=== PATIENT | female | born 1950 | race Caucasian/White ===

== ENCOUNTER → 2016-06-20 | Outpatient (CLI) | payer MEDICARE | END | disposition home or self-care (01) | LOC: GMAM 14:39 | PROVIDERS: ATTEND Family Medicine | DX: K30 Functional dyspepsia (principal) ==

== ENCOUNTER → 2016-07-13 | Outpatient (CLI) | payer MEDICARE | END | disposition home or self-care (01) | LOC: GMAM 15:03 | PROVIDERS: ATTEND Family Medicine | DX: K30 Functional dyspepsia (principal) ==

== ENCOUNTER → 2016-08-17 | Outpatient (CLI) | payer MEDICARE ==
--- NOTE | 2016-08-17 16:25 | MAM ---
And a zero Electronically signed by: Katelin Graves MD 08/17/2016 4:24 PM CDT
== END | disposition home or self-care (01) ==
LOC: MAMMO 08:35
PROVIDERS: ATTEND Family Medicine
DX: Z12.31 Encounter for screening mammogram for malignant neoplasm of breast (principal)

== ENCOUNTER 2016-08-24 18:15 | Emergency (ER) | payer MEDICARE ==
[2016-08-24] MEDS ORDERED: MORPHINE SULFATE INJ 10 MG/ML VIAL IM ONE (18:37)
--- NOTE | 2016-08-24 19:44 | RAD ---
EXAM DESCRIPTION: Ribs,Right 3 Views CLINICAL HISTORY: 66 years, Female, fall/pain COMPARISON: None. FINDINGS: Three views of the right-sided ribs were performed. No pneumothorax is detected. No localized pleural thickening is seen. No rib fracture is identified. Low lung volumes but the lungs are clear as imaged. The costophrenic sulci are sharp. Degenerative changes are noted in the spine. IMPRESSION: No rib fracture is identified. Electronically signed by: Malathi Mauro MD 08/24/2016 7:43 PM CDT
--- NOTE | 2016-08-24 19:50 | RAD ---
EXAM DESCRIPTION: Thoracic Spine,AP Lateral CLINICAL HISTORY: 66 years Female fall/pain COMPARISON: None. TECHNIQUE: Three views of the thoracic spine. FINDINGS: The upper thoracic spine is suboptimally visualized on the lateral views. Minimal retrolisthesis at C5-6 likely degenerative. Thoracic vertebral body alignment appears maintained. Vertebral body heights appear maintained. No acute fractures. Mild degenerative changes. IMPRESSION: No acute fracture is identified. Electronically signed by: Catarino Bennett MD 08/24/2016 7:49 PM CDT
--- NOTE | 2016-08-24 19:52 | RAD ---
EXAM DESCRIPTION: Knee,Left 2 or More Views CLINICAL HISTORY: 66 years Female fall/pain COMPARISON: None. TECHNIQUE: Three views of the left knee. FINDINGS: There is hemarthrosis in the knee joint. There are comminuted and slightly displaced fractures of the patella. There is soft tissue swelling anterior to the knee. The distal femur, upper tibia and fibula appear grossly intact. IMPRESSION: Comminuted and displaced patellar fractures. Electronically signed by: Catarino Bennett MD 08/24/2016 7:51 PM CDT
--- NOTE | 2016-08-24 19:54 | RAD ---
EXAM DESCRIPTION: Wrist,Right 3 Views CLINICAL HISTORY: 66 years ,Female fall/pain COMPARISON: None. TECHNIQUE: Three views of the right wrist. FINDINGS: There is a nondisplaced fracture involving the metaphyseal region of the distal radius. Intra-articular extension of the fracture line is not excluded. The distal ulna appears intact. The carpal bones appear grossly intact. IMPRESSION: Fractures involving the metaphyseal region of the distal radius. Electronically signed by: Catarino Bennett MD 08/24/2016 7:53 PM CDT
[2016-08-24] MEDS ORDERED: SODIUM CHLORIDE 0.9% 1000ML 1,000 ML IVS ONE (20:14)
[2016-08-24] MEDS ORDERED: SODIUM CHLORIDE 0.9% 1000ML 1,000 ML ONE (20:15)
[2016-08-24] MEDS ORDERED: MORPHINE SULFATE INJ 10 MG/ML VIAL IV ONE (20:15)
--- NOTE | 2016-08-24 20:19 | ED.PDOC ---
History of Present Illness - General Chief Complaint: Lower Extremity Injury Stated Complaint: LEFT KNEE INJURY Time Seen by Provider: 08/24/16 18:35 Source: patient, RN notes reviewed, Vital Signs reviewed Exam Limitations: no limitations - History of Present Illness Initial Comments: Patient is a 66 y/o female who tripped over a rock and fell while walking at about 1530 this afternoon. She went home for awhile, and was able to ambulate a little, however after she sat down awhile and needed to get up to go the the bathroom, she was unable to get up. She was brought in by EMS. Patient states that her pain is about a 6/10 if not moving. She has pain in her right wrist, left knee, and left back/rib area. The knee is quite swollen and she is now unable to bear weight. Timing/Duration: 4-6 hours, getting worse Severity: moderate, severe Improving Factors: immobilization Worsening Factors: movement Associated Symptoms: denies symptoms Allergies/Adverse Reactions: Allergies NO KNOWN ALLERGY Allergy (Verified 08/24/16 18:57) Home Medications: Ambulatory Orders Acetaminophen W/ Codeine [Tylenol w/Codeine 300-30 mg] 1 tab PO Q4H PRN #20 tab 08/24/16 Review of Systems - Review of Systems Constitutional: States: no symptoms reported. Denies: chills, fever EENTM: States: no symptoms reported Respiratory: States: no symptoms reported Cardiology: States: no symptoms reported Gastrointestinal/Abdominal: States: no symptoms reported Genitourinary: States: no symptoms reported Musculoskeletal: States: back pain, joint pain, joint swelling, muscle pain, muscle stiffness Skin: States: change in color Neurological: States: no symptoms reported. Denies: numbness, tingling Endocrine: States: no symptoms reported Hematologic/Lymphatic: States: no symptoms reported All other Systems: Reviewed and Negative Family Medical History - Family History Mother Family History: Unknown Physical Exam - Physical Exam General Appearance: Alert, Comfortable, Obvious distress Eye Exam: bilateral normal Ears, Nose, Throat: hearing grossly normal, normal ENT inspection Neck: supple Respiratory: lungs clear, normal breath sounds, no respiratory distress, no accessory muscle use Cardiovascular/Chest: regular rate, rhythm, no edema, no gallop, no murmur Peripheral Pulses: radial,right: 2+, radial,left: 2+, dorsalis pedis,right: 2+, dorsalis pedis,left: 1+ Gastrointestinal/Abdominal: normal bowel sounds, non tender, soft, no organomegaly, no pulsatile mass Back Exam: no vertebral tenderness, muscle spasm - upper back, right, around T4- T8 Extremity: inflammation, swelling, other - Left knee: Significant edema, ecchymosis with abrasion on knee where Patient fell. Right wrist: Swelling at distal radius. Unable to move wrist. Neurologic: alert, normal mood/affect, oriented x 3 Skin Exam: other - ecchymosis left knee, right wrist. Progress - Progress Progress: 08/24/16 20:53 Patient did not get any relief with IM injection of morphine 5 mg. Therefore, IV was inserted and fluids were started in addition to an additional 5 mg of morphine. I will send Patient home with an ED dispense of hydrocodone/APAP 10/ 325 and a prescription for Tylenol #3. She has been instructed to return to the ED for severe pain, numbness or tingling and pain in the foot or toes. She is to stay non weight-bearing until she sees Dr. Natarajan. - Results/Orders Results/Orders: 08/24/16 18:17 Temperature 99.8 F H Pulse Rate [ 75 RIGHT BRACHIAL] Blood Pressure 157/87 [RIGHT BRACHIAL ] 08/24/16 20:14 Sodium Chloride 0.9% 1000ML [Ns 1000 ml] 1,000 ml IVS ONCE - EKG/XRAY/CT XRAY: knee - hemearthrosis with comminuted, displaced fracture of the patella - Consult/PCP Time Called: 08:20 Consult/PCP: Dr. Natarajan Consult Reason/Comments: Put L leg in immobilizer, splint wrist. F/U in clinic next week. - Additional EKG/XRAY/Consults XRAY #2: right wrist - Nondisplaced fracture of the metaphysial region of the distal radius. XRAY #3: chest - No acute process or fracture Departure - Departure Clinical Impression: Fracture due to fall, Hemarthrosis Patella fracture Qualifiers: Encounter type: initial encounter Fracture type: closed Fracture alignment: displaced Fracture morphology: comminuted Laterality: left Qualified Code(s): S82.042A - Displaced comminuted fracture of left patella, initial encounter for closed fracture Distal radial fracture Qualifiers: Encounter type: initial encounter Fracture type: closed Fracture morphology: other fracture Laterality: right Qualified Code(s): S52.591A - Other fractures of lower end of right radius, initial encounter for closed fracture ICD-10 Supporting Text: Hemearthrosis of left knee Time of Disposition: 20:57 Disposition: Discharge to Home or Self Care Condition: Good Departure Forms: ED Discharge - Pt. Copy, Patient Portal Self Enrollment Instructions: Patella Fracture, DI for Patella Fracture, DI for Distal Radius Fracture Diet: resume usual diet Activity: other - No weight-bearing on left leg Referrals: Eliazar Natarajan MD [Active Staff] - 1-2 Weeks Prescriptions: Acetaminophen W/ Codeine [Tylenol w/Codeine 300-30 mg] 1 tab PO Q4H PRN #20 tab PRN Reason: Pain Home Medications: Ambulatory Orders Acetaminophen W/ Codeine [Tylenol w/Codeine 300-30 mg] 1 tab PO Q4H PRN #20 tab 08/24/16 Additional Instructions: Call Dr. Natarajan's office on Saturday morning and schedule an appointment for next week. Follow up in ED for any severe pain not relieved with pain medication, or numbness, pain in left foot.
[2016-08-24] MEDS ORDERED: HYDROCOD/APAP 10/325 (ER DISP) # 3 tablets PO ONE (20:57)
[2016-08-24] MEDS ORDERED: HYDROmorphone HCL INJ 2 MG/ML VIAL IV ONE (21:08)
[2016-08-24] MEDS ORDERED: NEOMYCIN-BACITRACIN-POLYMYXIN 0.9 GM UD TOP ONE (21:36)
[2016-08-24] MEDS ORDERED: TETANUS,DIPHTHERIA,PERTUSSIS 1 EA SYG IM ONE (21:40)
[2016-08-24] MEDS ORDERED: ONDANSETRON ODT 8 MG TAB SL ONE (22:52)
[2016-08-24] MEDS ORDERED: ONDANSETRON ODT 8 MG TAB ONE (22:53)
[2016-08-24 23:05] VITALS: BP 122/62; TEMP 98.4; O2SAT 94
== END 2016-08-24 23:05 | disposition home or self-care (01) ==
LOC: ER 18:15
DX: S82.042A Displaced comminuted fracture of left patella, initial encounter for closed fracture (principal); S52.591A Other fractures of lower end of right radius, initial encounter for closed fracture; M25.062 Hemarthrosis, left knee; Z23 Encounter for immunization; W18.09XA Striking against other object with subsequent fall, initial encounter; Y92.9 Unspecified place or not applicable
CPT/HCPCS: 71101; 72070; 73110; 73560; J1170; J2270; J7030

== ENCOUNTER 2016-08-31 05:48 | Inpatient (IN) | payer MEDICARE ==
--- NOTE | 2016-08-30 12:12 | RAD ---
EXAM DESCRIPTION: Chest,2 Views CLINICAL HISTORY: Preoperative respiratory evaluation. Z01.811 COMPARISON: None Available. TECHNIQUE: Two-views of the chest. FINDINGS: Heart size normal. Mildly tortuous aorta. Mild hyperinflation. Blunting of the costophrenic angles likely pleural thickening. No pulmonary edema, infiltrate or effusion. IMPRESSION: No acute chest process. Electronically signed by: Rinku Cade MD 08/30/2016 12:11 PM CDT
[2016-08-31] MEDS ORDERED: LIDOCAINE 1% W/ EPINEPHRINE 20 ML VIAL INJ ONE (10:16)
[2016-08-31] MEDS ORDERED: ceFAZolin SODIUM 1 GM VIAL ONE ×3 (10:16→15:19)
[2016-08-31] MEDS ORDERED: BUPIVACAINE 0.25% W/EPI 50 ML VIAL INJ ONE (10:16)
[2016-08-31] MEDS ORDERED: VANCOMYCIN HCL INJ 1,000 MG VIAL IVPB ONE ×3 (10:16→19:45)
[2016-08-31] MEDS ORDERED: fentaNYL CITRATE INJ 50 MCG/ML AMP ONE (10:26)
[2016-08-31] MEDS ORDERED: LACTATED RINGERS 1,000 ML ONE (10:28)
[2016-08-31] MEDS ORDERED: SODIUM CHL 0.9% 100ML MINI-BAG 100 ML IVPB ONE (10:30)
[2016-08-31] MEDS ORDERED: CYCLOBENZAPRINE HCL 10 MG TAB PO PRN (10:59)
[2016-08-31] MEDS ORDERED: ZOLPIDEM TARTRATE 5 MG TAB PO PRN (10:59)
[2016-08-31] MEDS ORDERED: BENZOCAINE-MENTH LOZ (CEPACOL) 1 EA LOZ MT PRN (10:59)
[2016-08-31] MEDS ORDERED: ACETAMINOPHEN 325 MG TAB PO PRN (10:59)
[2016-08-31] MEDS ORDERED: ONDANSETRON INJ 4 MG/2 ML VIAL IV PRN (10:59)
[2016-08-31] MEDS ORDERED: ALUMINUM & MAGNESIUM HYDROXIDE 30 ML UD PO PRN (10:59)
[2016-08-31] MEDS ORDERED: DEX 5% W/NACL 0.45% 1000ML 1,000 ML IVS PRN (10:59)
[2016-08-31] MEDS ORDERED: PROMETHAZINE HCL INJ 12.5 MG in SODIUM CHLORIDE 0.9% 50ML 50 ML IVPB PRN (10:59)
[2016-08-31] MEDS ORDERED: NALOXONE HCL INJ 0.4 MG/ML VIAL IV PRN (10:59)
[2016-08-31] MEDS ORDERED: SODIUM CHLORIDE 0.9% (FLUSH) 10 ML SYG IV PRN (10:59)
[2016-08-31] MEDS ORDERED: BISACODYL SUPPOSITORY 10 MG PR PRN (10:59)
[2016-08-31] MEDS ORDERED: MAGNESIUM HYDROXIDE 30 ML UD PO PRN (10:59)
[2016-08-31] MEDS ORDERED: TEMAZEPAM 15 MG CAP PO PRN (10:59)
[2016-08-31] MEDS ORDERED: MORPHINE SULFATE INJ 10 MG/ML VIAL IV PRN (10:59)
[2016-08-31] MEDS ORDERED: PROMETHAZINE HCL INJ 25 MG in SODIUM CHLORIDE 0.9% 50ML 50 ML IVPB PRN (10:59)
[2016-08-31] MEDS ORDERED: ACETAMINOPHEN 500 MG TAB PO PRN (10:59)
[2016-08-31] MEDS ORDERED: IV SET AND CAP CHANGE INJ INJ SCH (11:00)
[2016-08-31] MEDS ORDERED: MORPHINE PCA 1 MG/ML 100ML 1 BAG in PREMIX BAG 1 BAG IVPB SCH (11:00)
[2016-08-31] MEDS ORDERED: SODIUM CHLORIDE 0.9% 250ML 250 ML ONE ×2 (11:23→19:45)
[2016-08-31] MEDS ORDERED: ePHEDrine SULF 50 MG/ML IV ONE (12:00)
[2016-08-31] MEDS ORDERED: LIDOCAINE 1% 10 ML VIAL INJ ONE (12:00)
[2016-08-31] MEDS ORDERED: PROPOFOL 200 MG/20 ML VIAL IV ONE (12:00)
[2016-08-31] MEDS ORDERED: MORPHINE PCA 1 MG/ML 100 ML BAG IVPB ONE (13:01)
[2016-08-31] MEDS: MORPHINE SULFATE INJ 10 MG/ML VIAL IM PRN ×5 (13:45→14:10)
[2016-08-31] MEDS ORDERED: SODIUM CHLORIDE 0.9% 100ML 100 ML IVPB ONE (15:19)
[2016-08-31] MEDS: ceFAZolin SODIUM 2 GM in SODIUM CHLORIDE 0.9% 100ML 100 ML IVPB SCH (19:27)
[2016-08-31] MEDS: VANCOMYCIN HCL INJ 1,000 MG in SODIUM CHLORIDE 0.9% 250ML 250 ML IVPB SCH ×2 (19:30→23:37)
[2016-08-31] MEDS: DOCUSATE CALCIUM 240 MG CAP PO SCH (20:56)
[2016-09-01] MEDS: ENOXAPARIN SODIUM 30 MG/0.3 ML SYG SUBCU SCH ×2 (00:34→14:00)
[2016-09-01] MEDS ORDERED: ceFAZolin SODIUM 1 GM VIAL ONE ×2 (00:37→12:51)
[2016-09-01] MEDS ORDERED: SODIUM CHLORIDE 0.9% 100ML 100 ML IVPB ONE ×2 (00:37→12:51)
[2016-09-01] MEDS: ceFAZolin SODIUM 2 GM in SODIUM CHLORIDE 0.9% 100ML 100 ML IVPB SCH ×3 (03:30→14:26)
[2016-09-01] MEDS: MAGNESIUM OXIDE 400 MG TAB PO SCH (09:30)
--- NOTE | 2016-09-01 13:08 | PN ---
DATE: 08/30/16 SUBJECTIVE: Ms. Dawn subjective is doing pretty well. She is up to a chair and has been working with physical therapy this morning. OBJECTIVE: She is afebrile. Vital signs are stable. Dressing is clean, dry and intact. ASSESSMENT: 1. Status post open reduction and internal fixation of patella. PLAN: At this point, she is going to stay 1 more night with us and she will be discharged tomorrow. #[id number] [facility]
[2016-09-01] MEDS ORDERED: ceFAZolin SODIUM 2 GM in SODIUM CHLORIDE 0.9% 100ML 100 ML IVPB ONE (13:20)
--- NOTE | 2016-09-01 13:22 | OP ---
DATE OF PROCEDURE: 08/31/16 PREOPERATIVE DIAGNOSIS: 1. Patella fracture. POSTOPERATIVE DIAGNOSIS: 1. Patella fracture. PROCEDURE: 1. Open reduction and internal fixation of patella. SURGEON: Eliazar Natarajan M.D. FILTER TANK OPERATOR: Jackson Velazquez CST, -C. ANESTHESIA: General anesthesia. COMPLICATIONS: None. FINDINGS: Displaced patella fracture. INDICATION FOR PROCEDURE: Ms. Dawn is a patient that presented to the clinic after a fall and was unable to extend the leg nor was she able to hold it in extended position after passive extension. She had a patella fracture noted on x-ray. Because of her inability to appropriately extend or hold the leg extended, we talked about options. Because of that and the findings on physical exam, I felt it was prudent to proceed with open reduction and internal fixation. Following the discussion regarding the risks, benefits, and alternatives to operative therapy, she gave informed consent for that. DESCRIPTION OF PROCEDURE: The patient was brought to the Operating Room and placed in the supine position. General anesthesia was induced and the patient' s leg was sterilely prepped and draped. Following prepping and draping, an incision was made on the anterior aspect of the knee. Dissection was carried down to the patella and it was noted that there was indeed a tear in the retinaculum. The fracture was identified and the hematoma was cleared. Following that, under fluoroscopic imaging a provisional reduction was achieved. After reduction, 2 clamps were used to hold it reduced and 2 K-wires were passed in a parallel fashion from proximal to distal. A tension band wire was placed and tightened, and the clamps were removed. The reduction was confirmed under fluoroscopic imaging. Once the reduction had been achieved and stabilized, the wound and joint were thoroughly irrigated. Following thorough irrigation, the retinacular disruption was repaired. The skin was then closed with a combination of running and interrupted subcuticular stitches. Sterile dressings were placed. The patient was awakened from anesthesia and taken to recovery. POSTOPERATIVE: She can be weightbearing as tolerated, although we are going to start her out on partial weightbearing for comfort purposes. She will be admitted for physical therapy. She will be with us until she has achieved therapy goals. #[id number] [facility]
[2016-09-01] MEDS ORDERED: VANCOMYCIN HCL INJ 1,000 MG VIAL IVPB ONE (18:08)
[2016-09-01] MEDS ORDERED: SODIUM CHLORIDE 0.9% 250ML 250 ML ONE (18:08)
[2016-09-01] MEDS: VANCOMYCIN HCL INJ 1,000 MG in SODIUM CHLORIDE 0.9% 250ML 250 ML IVPB SCH (18:25)
--- NOTE | 2016-09-01 19:49 | CONS ---
DATE OF CONSULTATION: 08/31/16 SUPERVISING PHYSICIAN: Vikash Monsalve MD CHIEF COMPLAINT: Fractured left kneecap. HISTORY OF PRESENT ILLNESS: This is a 66 year-old female patient who was walking to work 1 week ago. 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 She fractured her left kneecap and also fractured her right wrist. She saw Dr. Natarajan and after discussing the risks and benefits of the surgery as well as the alternatives, she elected to have surgical intervention per Dr. Eliazar Natarajan. Today, she had an open reduction and internal fixation of her left patella. She was admitted to the Medical/ Surgical floor postoperatively. She had no concerns or problems in the postoperative phase with the exception of she did have some trouble getting her pain under control, but we were eventually able to control her pain. Now her pain is more controlled with a JUNIOR ACCOUNT MANAGER pump. She had no nausea or vomiting. Her diet is clear liquids for right now and she is tolerating that well. PAST MEDICAL HISTORY: 1. Gastroesophageal reflux disease. 2. Recent Helicobacter pylori infection. PAST SURGICAL HISTORY: 1. Hysterectomy. 2. Cystocele that was in [address] Winter in [place]. CURRENT MEDICATIONS: Per the EMR and awaiting verification. ALLERGIES: NO KNOWN DRUG ALLERGIES. FAMILY HISTORY: SOCIAL HISTORY: She is . 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 She has 4 children. She denies any tobacco, ETOH or illicit drug use. REVIEW OF SYSTEMS: Negative with the exception of the issues per the History of Present Illness. PHYSICAL EXAMINATION: VITAL SIGNS: She is afebrile, heart rate 96, blood pressure 152/96, respiratory rate 18, O2 sat 92%. GENERAL: This is a 66 year-old female patient who is lying in her hospital bed. HEENT: Normocephalic and atraumatic. Pupils are equal and reactive. Oropharynx is clear. Oral mucous membranes are moist. NECK: Supple without mass. Trachea is midline. CHEST: Lungs are clear to auscultation bilaterally. There is equal rise and fall of the chest with inspiration and expiration. HEART: Regular rate and rhythm. ABDOMEN: Soft, nondistended, non-tender. Bowel sounds are positive. EXTREMITIES: No cyanosis, clubbing or edema. She does have a dressing and brace to the left leg. The dressing is dry and intact. NEUROLOGIC: She is somewhat sleepy but she awakens easily and answers questions appropriately. She is oriented times three. LABORATORY: WBCs are 8.4, hemoglobin 12.6, hematocrit 38.6, platelets are 297. Sodium 139, potassium 4.4, chloride 105, carbon dioxide 27, BUN 14, creatinine 0.55, glucose 98, serum osmolality 278, calcium 9.3. Chest x-ray shows no acute chest process. Knee x-ray is per the EMR. All other labs and films have been reviewed via the EMR. IMPRESSION: 1. Postoperative day zero status post open reduction and internal fixation of left patella performed per Dr. Natarajan, orthopedic surgeon. 2. Gastroesophageal reflux disease. PLAN: We will monitor the patient closely. I have encouraged good pulmonary toilet. I will restart her home medications. She will continue with physical therapy for strengthening and conditioning. Hopefully she will be discharged tomorrow or the next day. We will defer orthopedic issues to Dr. Natarajan. Otherwise we will continue monitoring the patient and treat as appropriate. Dr. Monsalve is the collaborating physician and available for consultation. #[id number] [facility]
[2016-09-01] MEDS: DOCUSATE CALCIUM 240 MG CAP PO SCH (21:30)
--- NOTE | 2016-09-01 21:42 | PN ---
DATE: 09/01/16 SUPERVISING PHYSICIAN: Vikash Monsalve MD SUBJECTIVE: The patient is sitting up in the chair in her hospital room. She has no complaints of chest pain, shortness of breath, nausea, vomiting or diarrhea. She believes that her pain has been well controlled. She has had no problems concerning her surgery. OBJECTIVE: VITAL SIGNS: She is afebrile, heart rate 86, blood pressure 90/59, respiratory rate 20, O2 sat is 95%. RESPIRATORY: Clear to auscultation bilaterally. CARDIAC: Regular rate and rhythm. ABDOMEN: Soft, nondistended, non-tender. Bowel sounds are positive. EXTREMITIES: No cyanosis, clubbing or edema. Pedal pulses are +2 bilaterally. She has brace to the left leg and a dressing to her left knee that is dry and intact. NEUROLOGIC: She is awake, alert and oriented times three. LABORATORY: Hemoglobin 10.5, hematocrit 32.7. All other labs and films have been reviewed via the EMR. ASSESSMENT: 1. Postoperative day 1 status post open reduction and internal fixation of left patella performed by Dr. Natarajan, orthopedic surgeon. 2. Gastroesophageal reflux disease. PLAN: We will continue to follow the patient as needed. She has seen Physical Therapy today. Dr. Natarajan recommended that she be discharged this evening or tomorrow depending on Physical Therapy's evaluation. At this point, she needs her pain pump discontinued and to be started on Tramadol. If her pain is well controlled and Physical Therapy agrees, she will be discharged home tomorrow with close followup with Dr. Natarajan on Saturday at 8:00. Otherwise we will continue to monitor her close and followup as needed. Any problems we will treat as medically necessary. Dr. Monsalve is the collaborating physician and available for consultation. #[id number] [facility]
[2016-09-01] MEDS: HYDROcodone 5MG/APAP 325MG 1 EA TAB PO PRN (22:33)
[2016-09-02] MEDS: ENOXAPARIN SODIUM 30 MG/0.3 ML SYG SUBCU SCH ×2 (00:32→12:46)
--- NOTE | 2016-09-02 02:08 | RAD ---
Procedure: XR LEFT KNEE 1-2 VIEWS Exam Date: 08/31/2016 Ordering Provider: COLE PEDRAZA Clinical Indication: TKA Comparison: 08/30/2016 FINDINGS: Surgical pins and wiring are noted within the patella. Hardware intact. Alignment is anatomic. Expected postsurgical changes in the overlying soft tissues. Tiny effusion. There is no new fracture or dislocation. The articular surfaces of the left knee are intact. There is no significant joint space narrowing. IMPRESSION: 1. Postsurgical changes in the patella. Hardware intact. Alignment is anatomic. Electronically signed by: Ovidio Skelton MD 09/02/2016 2:06 AM CDT
[2016-09-02] MEDS: HYDROcodone 5MG/APAP 325MG 1 EA TAB PO PRN ×2 (07:59→12:01)
[2016-09-02] MEDS ORDERED: SODIUM CHLORIDE 0.9% (FLUSH) 10 ML SYG IV SCH (09:00)
[2016-09-02] MEDS: MAGNESIUM OXIDE 400 MG TAB PO SCH (09:00)
[2016-09-02 10:41] VITALS: BP 102/69; TEMP 99.2; O2SAT 94
--- NOTE | 2016-09-02 19:22 | DS ---
SUPERVISING PHYSICIAN: Vikash Monsalve M.D. DISCHARGE DIAGNOSIS: 1. Postoperative day number 2 status post open reduction and internal fixation of left patella performed by Dr. Natarajan, orthopedic surgeon. 2. Gastroesophageal reflux disease. HISTORY OF PRESENT ILLNESS: This is a 66 year-old female patient who was walking to work at [employer] about 1 week prior to her surgery. She stepped into a hole on the concrete and fell and hit her left knee as well as her right wrist. She fractured her left kneecap and also she fractured her right wrist. She saw Dr. Natarajan and elected to have surgical intervention. She came to the hospital and had an open reduction and internal fixation of her left patella. She did well perioperatively and postoperatively was admitted to the Medical/ Surgical floor. HOSPITAL COURSE: The patient did very well postoperatively. She was weaned off of her IV pain medications. She was then given Hydrocodone in the hospital. Physical Therapy worked with her yesterday and today. Her pain is under control and Physical Therapy has agreed that she can be discharged with close followup with outpatient physical therapy. DISCHARGE PLAN: The patient will be discharged home in stable condition. She is to continue her previous diet. Her activity is to be per Physical Therapy. She has a followup appointment with Dr. Natarajan in the morning at 8:00 AM. His office will set her up for her outpatient physical therapy. I have ordered her a rolling walker that is being delivered before discharge. She has been discharged on some Tramadol for pain. She is also to followup with Dr. Schmidt, her primary care physician within the next 2 weeks. She is to call his office to get an appointment. She can followup with Dr. Natarajan's office for any problems or return to the Emergency Room if needed. DISCHARGE MEDICATIONS: 1. Prilosec. 2. Vitamin C. 3. Flexeril. 4. Tramadol. Dr. Monsalve is the collaborating physician available for consultation. #[id number] [facility]
[2016-09-03] MEDS ORDERED: BISACODYL SUPPOSITORY 10 MG PR ONE (21:00)
[2016-09-03] MEDS ORDERED: MAGNESIUM HYDROXIDE 30 ML UD PO ONE (21:00)
== END 2016-09-02 13:35 | disposition home or self-care (01) | DRG 517 ==
LOC: AMB 05:48 → MS 14:40
PROVIDERS: ADMIT Orthopaedic Surgery; ATTEND Orthopaedic Surgery
PROC: 0QSF04Z Reposition Left Patella with Internal Fixation Device, Open Approach (ICD-10-PCS; principal; 2016-08-31 13:00)
DX: S82.002A Unspecified fracture of left patella, initial encounter for closed fracture (principal); K21.9 Gastro-esophageal reflux disease without esophagitis; W17.2XXA Fall into hole, initial encounter; Y92.480 Sidewalk as the place of occurrence of the external cause

== ENCOUNTER → 2016-09-17 | Outpatient (CLI) | payer MEDICARE ==
--- NOTE | 2016-09-17 11:08 | RAD ---
EXAM DESCRIPTION: Wrist,Right 3 Views CLINICAL HISTORY: 66 years, Female, CLOSED FX OF DISTAL END OF RADIUS COMPARISON: August 30 FINDINGS: Impacted fracture distal radius with intra-articular extension has stable alignment. Slight interval radiographic healing. Other bones and joints stable IMPRESSION: Stable alignment intra-articular fracture distal radial metaphysis with slight interval radiographic healing Electronically signed by: Brodie Steward MD 09/17/2016 11:08 AM CDT
--- NOTE | 2016-09-17 11:11 | RAD ---
EXAM DESCRIPTION: Knee,Left Complete CLINICAL HISTORY: 66 years, Female, UNSPECIFIED FX OF LEFT PATELLA COMPARISON: August 31 and earlier FINDINGS: Stable appearance of operative reduced comminuted patella fracture. Less soft tissue swelling. Slight narrowing patellofemoral joint space with inferior articular irregularity IMPRESSION: Stable alignment operatively reduced comminuted patella fracture. Less soft tissue swelling compared to August 31 Electronically signed by: Brodie Steward MD 09/17/2016 11:10 AM CDT
== END | disposition home or self-care (01) ==
LOC: RAD 07:59
PROVIDERS: ATTEND Orthopaedic Surgery
DX: S82.001D Unspecified fracture of right patella, subsequent encounter for closed fracture with routine healing (principal); S52.501D Unspecified fracture of the lower end of right radius, subsequent encounter for closed fracture with routine healing; X58.XXXA Exposure to other specified factors, initial encounter

== ENCOUNTER → 2016-10-04 | Outpatient (CLI) | payer MEDICARE ==
--- NOTE | 2016-10-04 08:42 | RAD ---
Procedure: XR WRIST 3 OR MORE VIEWS Exam Date: 10/04/2016 8:16 AM CDT Ordering Provider: COLE PEDRAZA Clinical Indication: FX Comparison: September 17, 2016 Findings: There is redemonstration of an impacted fracture of the distal radius metaphysis. There is greater endosteal callus formation since the previous exam. No acute fracture or focal osseous destruction is present. IMPRESSION: Healing distal radius fracture in anatomic alignment. No new fracture. Electronically signed by: Sugar Valentin MD 10/04/2016 8:42 AM CDT
--- NOTE | 2016-10-04 08:43 | RAD ---
EXAM DESCRIPTION: Knee,Left Complete CLINICAL HISTORY: FX COMPARISON: September 17, 2016 IMPRESSION: 4 standing views of the left knee are obtained. Exam again demonstrates orthopedic hardware fixation of a transverse fracture of the patella. There is evidence of interval bridging callus formation and interval healing. The more medial vertical orthopedic pin appears to have moved in a cephalic direction by up to 1 cm since prior exam. Mild articular surface irregularity in the area of fracture involving the patella. No narrowing of the medial or lateral tibiofemoral compartment is seen. The soft tissue density, swelling anterior to the patella is similar to previous exam. The soft tissue thickening in the region of the quadriceps tendon attachment to the patella is noted. There is narrowing of the lateral patellofemoral compartment with mild lateral patellar tilting and approximately 5 mm lateral subluxation consistent with osteoarthritic changes of the patellofemoral compartment. Electronically signed by: Shamar Kaplan MD 10/04/2016 8:43 AM CDT
== END | disposition home or self-care (01) ==
LOC: RAD 08:11
PROVIDERS: ATTEND Orthopaedic Surgery
DX: S82.002D Unspecified fracture of left patella, subsequent encounter for closed fracture with routine healing (principal); S52.501D Unspecified fracture of the lower end of right radius, subsequent encounter for closed fracture with routine healing; X58.XXXA Exposure to other specified factors, initial encounter

== ENCOUNTER → 2016-10-23 | Outpatient (CLI) | payer MEDICARE ==
--- NOTE | 2016-10-23 09:43 | RAD ---
EXAM DESCRIPTION: Wrist,Right 3 Views CLINICAL HISTORY: 66 years, Female, FX COMPARISON: October 04, 2016 TECHNIQUE: AP/ lateral/ oblique views of the right wrist. FINDINGS: Progressive healing of the distal radial fracture in essentially anatomic alignment is noted with previously evident sclerosis less prominent in a distinct fracture line no longer apparent. The ulnar styloid is absent but unchanged from prior study and no new fractures are noted. No carpal dislocation is seen. IMPRESSION: 1. Healed fracture of the distal radius, less apparent than on study 3 weeks earlier Electronically signed by: Rinku Marsh MD 10/23/2016 9:43 AM CDT
--- NOTE | 2016-10-23 09:47 | RAD ---
EXAM DESCRIPTION: Knee,Left Complete CLINICAL HISTORY: 66 years, Female, KNEE PAIN COMPARISON: October 04, 2016 TECHNIQUE: 4 views of the left knee, standing FINDINGS: standing views of the left knee demonstrate internal fixation of the patella with vertical pins and a [id number] wire suture wrapping over the anterior patella with incompletely healed transverse patellar fracture that is stable in alignment. Proximally 2 mm of offset in the posterior patellar articular surface is unchanged on the lateral view. The bones appear osteopenic and additional injuries of the fibula tibia or femur are not apparent. An element of synovitis or small joint effusion in the suprapatellar region is suggested on the lateral view. Moderate osteopenia of the bony structures is evident. IMPRESSION: 1. Stable left knee with internally fixed a transverse patellar fracture that appears incompletely healed. Electronically signed by: Rinku Marsh MD 10/23/2016 9:46 AM CDT
== END | disposition home or self-care (01) ==
LOC: RAD 07:40
PROVIDERS: ATTEND Orthopaedic Surgery
DX: S82.002D Unspecified fracture of left patella, subsequent encounter for closed fracture with routine healing (principal); S52.501D Unspecified fracture of the lower end of right radius, subsequent encounter for closed fracture with routine healing; X58.XXXA Exposure to other specified factors, initial encounter

== ENCOUNTER 2016-11-22 07:37 | Inpatient (IN) | payer MEDICARE ==
--- NOTE | 2016-11-22 09:58 | HP ---
SUPERVISING PHYSICIAN: Rinku Schmidt M.D. CHIEF COMPLAINT: Swelling in her left knee. HISTORY OF PRESENT ILLNESS: This is a 66 year-old female patient who was at her [address] Natarajan. Approximately 3 months ago she was walking to work at [employer]. She stepped in a hole on the pavement and she fell and broke her left knee and her right wrist. Her left knee was surgically repaired by Dr. Natarajan and when she was at her appointment today she complained that she had some swelling in that left lower leg. She was sent for lower extremity ultrasound and per radiology interpretation the sonogram showed an extensive deep venous thrombosis of the left lower extremity from the common femoral vein to the popliteal vein. Dr. Schmidt is her primary care physician. Dr. Natarajan called him and I was called for admission to the hospital. PAST MEDICAL HISTORY: 1. Peptic ulcer disease. 2. Fractured left knee and a fractured right wrist. PAST SURGICAL HISTORY: 1. Hysterectomy. 2. Rectocele and cystocele. 3. Left knee surgery. 4. Teeth extractions for dentures. OUTPATIENT MEDICATIONS: 1. Omeprazole. ALLERGIES: NO KNOWN DRUG ALLERGIES. SOCIAL HISTORY: She is . She has 4 children. 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 She has never smoked. She drinks alcohol very rarely. REVIEW OF SYSTEMS: Negative except as per the history of present illness. PHYSICAL EXAMINATION: VITAL SIGNS: Temperature 98.9, pulse rate 77, blood pressure 163/97 on admission, it is now 123/83. Respiratory rate 20, O2 sat is 96%. GENERAL: This is a 66 year-old female patient who is lying in her hospital bed in no acute distress. HEENT: Normocephalic and atraumatic. Pupils are equal and reactive. Oropharynx is clear. Oral mucous membranes are moist. NECK: Supple without mass. There is no jugular venous distention. CHEST: Clear to auscultation bilaterally. There is equal rise and fall of the chest with inspiration and expiration. CARDIOVASCULAR: Regular rate and rhythm. ABDOMEN: Soft, nondistended, non-tender. Bowel sounds are positive. EXTREMITIES: There is no cyanosis, clubbing or edema to the right lower leg. Pedal pulses are +2. Left lower leg is +2 edema from just above the knee down to the foot. It is erythematous. Pedal pulse to the left leg is +1 and palpable. NEUROLOGIC: She is awake, alert and oriented times three. LABORATORY: WBCs 7.5, hemoglobin 12.9, hematocrit 40.1, platelets 242. Chemistries are basically within normal limits with the exception of her glucose is slightly elevated at 128. Ultrasound is as per the History of Present Illness. ASSESSMENT: 1. Deep venous thrombosis of the left lower extremity from the common femoral vein to the popliteal vein. 2. Recent knee surgery approximately 3 months ago after a fracture of the knee. 3. Peptic ulcer disease. PLAN: We will place the patient in observation. She will get Lovenox 1 mg per kg b.i.d. and then we will start her on the Xarelto starter pack which includes 21 days of 15 mg b.i.d. and then transition to 20 mg daily. She will need close followup with Dr. Schmidt. Hopefully she can be discharged tomorrow. We will continue to monitor the patient closely and followup as needed. Dr. Schmidt is the collaborating physician and available for consultation. #[id number] [facility]
[2016-11-22] MEDS ORDERED: ENOXAPARIN SODIUM 80 MG/0.8 ML SYG SUBCU ONE (12:09)
[2016-11-22] MEDS: ENOXAPARIN SODIUM 80 MG/0.8 ML SYG SUBCU SCH ×2 (12:33→20:34)
[2016-11-22] MEDS ORDERED: SODIUM CHLORIDE 0.9% (FLUSH) 10 ML SYG IV PRN (12:36)
[2016-11-22] MEDS ORDERED: HYDROcodone 5MG/APAP 325MG 1 EA TAB PO PRN (12:37)
[2016-11-22] MEDS ORDERED: ACETAMINOPHEN 325 MG TAB PO PRN (12:37)
--- NOTE | 2016-11-22 12:52 | RAD ---
EXAM DESCRIPTION: Knee,Left Complete CLINICAL HISTORY: CLOSED FX OF PATELLA COMPARISON: 23 October 2016 TECHNIQUE: 4 views left FINDINGS: The exam reveals wire and pin repair of a fracture of the left patella. A small joint effusion is evident. Mild osteopenia is observed. No significant callus formation is observed. When direct comparison is made to the previous exam there is been a reduction the size of the pleural effusion. IMPRESSION: ORIF left patella. No interval change is observed other than a reduction the size of the pleural effusion. Electronically signed by: Nawaf Fitzgerald MD 11/22/2016 12:51 PM CDT
--- NOTE | 2016-11-22 12:54 | RAD ---
EXAM DESCRIPTION: Wrist,Right 3 Views CLINICAL HISTORY: CLOSED FX OF DISTAL END OF RADIUS COMPARISON: 23 October 2016 TECHNIQUE: 3 views right FINDINGS: Mild soft tissue swelling is observed about the wrist. The previously observed fracture of the distal radius is barely discernible on today's exam. I feel this represents evidence of healing. No new injury is seen. IMPRESSION: Healing fracture of the distal right radius Electronically signed by: Nawaf Fitzgerald MD 11/22/2016 12:53 PM CDT
[2016-11-22] MEDS ORDERED: IV SET AND CAP CHANGE INJ INJ SCH (13:00)
--- NOTE | 2016-11-22 14:55 | US ---
EXAM DESCRIPTION: Venous,Lower Extremity LT CLINICAL HISTORY: SWELLING LEFT KNEE COMPARISON: None. TECHNIQUE: 2D grayscale and color venous duplex Doppler evaluation of the lower extremity are obtained from groin to calf. FINDINGS: There is hypoechoic noncompressible thrombus without vascular flow in the left common femoral, superficial femoral, and popliteal veins. No significant recanalization is seen. There is normal vascular flow and compressibility of the posterior tibial and peroneal veins. IMPRESSION: Extensive deep venous thrombosis of the left lower extremity from the common femoral vein to the popliteal vein.. Attempting to contact referring clinician. Electronically signed by: Shamar Kaplan MD 11/22/2016 2:53 PM CDT
[2016-11-22] MEDS: SODIUM CHLORIDE 0.9% (FLUSH) 10 ML SYG IV SCH (20:34)
[2016-11-23] MEDS ORDERED: OMEPRAZOLE CAP 20 MG CAP ONE (07:18)
[2016-11-23] MEDS ORDERED: NON-FORMULARY MEDICATION 1 EA MIS (Omeprazole Magnesium [Prilosec Otc] 20 MG) PO SCH (09:00)
[2016-11-23] MEDS: SODIUM CHLORIDE 0.9% (FLUSH) 10 ML SYG IV SCH (09:56)
[2016-11-23] MEDS ORDERED: XARELTO STARTER PACK PO SCH (10:30)
[2016-11-23] MEDS ORDERED: RIVAROXABAN 15 MG TAB PO SCH (10:30)
[2016-11-23 12:04] VITALS: O2SAT 96
--- NOTE | 2016-11-23 13:42 | DS ---
DISCHARGE DIAGNOSIS: 1. Acute deep venous thrombosis involving the proximal left lower extremity from the common femoral vein to the popliteal vein, symptomatic with edema and erythema to the left lower extremity. 2. Recent knee surgery with repair of a fractured patella with wire placement about three months previously. 3. History of peptic ulcer disease. HISTORY OF PRESENT ILLNESS: This 66-year-old, white female patient was placed in the hospital overnight for observation and initiation of parenteral followed by oral therapy for an acute DVT involving the left lower extremity. She was seen in the clinic with Dr. Natarajan on the day of admission and was complaining of some swelling and erythema of her left lower extremity postoperative repair of a fractured patella about three months ago. DVT ultrasound exam was performed on the left venous system showing a fairly significant proximal DVT requiring initiation of therapeutic intervention. She was started on Lovenox and now at the time of discharge will be continued on Xarelto monotherapy with close clinical observation and followup. LABORATORY: CBC within normal limits except for some microcytic/hypochromic presentation with a hemoglobin of 12.9, white count, 7,200 with 57% neutrophils. Chemistries show potassium 4, BUN 15, creatinine 0.65, glucose 128 , calcium 9.6, liver enzymes normal, albumin 4.1. No cultures obtained. RADIOLOGY: X-ray of the right wrist shows healing of the distal radius fracture. X-ray of the left knee does show healing of the left patella with wires and pin repair used for reconstruction of the left patella. Lower extremity ultrasound does reveal extensive deep venous thrombosis involving the left lower extremity from the common femoral to the popliteal vein. HOSPITAL COURSE: The patient was feeling much improved with some slight diminishment of the tightness and swelling of the leg, though still erythematous with 1 to 2+ pitting edema present. She received two doses of therapeutic quantity of Lovenox anticoagulant therapy and was started on her Xarelto Dosepak for continued therapeutic intervention. PLAN: The patient was ready for continued outpatient therapy on the morning of discharge. She will have followup with Dr. Schmidt or Magali Breen this next week , 11/27/16 at 9:45 AM. She is to rest with her left leg elevated as far above the heart as possible. She is to breathe deeply and actively contract muscles of the lower extremities during the day to assist with increased venous flow. Continue Xarelto 15 mg twice daily for 21 days and then continue with 20 mg daily for the next three months or as directed by Dr. Schmidt and Dr. Natarajan. Close followup with Dr. Natarajan in the clinic to continue. May use pantyhose for superficial leg vein compression. Return if shortness of breath, worsening leg swelling, or pain is noted in the lower extremities. #[id number] [facility]
[2016-11-23 14:07] VITALS: BP 138/79; TEMP 97.2
[2016-11-24] MEDS ORDERED: OMEPRAZOLE CAP 20 MG CAP PO SCH (06:30)
== END 2016-11-23 15:00 | disposition home or self-care (01) | DRG 301 ==
LOC: RAD 07:37 → MS 09:54
PROVIDERS: ADMIT Nurse Practitioner Acute Care; ATTEND Nurse Practitioner Acute Care
DX: I82.412 Acute embolism and thrombosis of left femoral vein (principal); I82.432 Acute embolism and thrombosis of left popliteal vein; Z87.11 Personal history of peptic ulcer disease

== ENCOUNTER → 2017-01-28 | Outpatient (CLI) | payer MEDICARE ==
--- NOTE | 2017-01-28 13:05 | RAD ---
EXAM DESCRIPTION: Knee,Left Complete CLINICAL HISTORY: 66 years, Female, CLOSED FRACTURE OF PATELLA COMPARISON: November 22, 2016 TECHNIQUE: Four views of the left knee FINDINGS: Previous internal fixation of the patella with metal pins and [id number] suture is evident with moderately advanced degenerative changes. The bones are osteopenic. Additional abnormality is not apparent. Small joint effusion is noted. The distal femur and proximal tibia appear intact. IMPRESSION: 1. Degenerative changes with old internal fixation of the patella. No acute injury noted. Electronically signed by: Rinku Marsh MD 01/28/2017 1:03 PM CDT
--- NOTE | 2017-01-28 13:06 | RAD ---
EXAM DESCRIPTION: Wrist,Right 3 Views CLINICAL HISTORY: 66 years, Female, CLOSED FRACTURE OF DISTAL END OF RADIUS COMPARISON: November 22, 2016 TECHNIQUE: AP/ lateral/ oblique views of the right wrist. FINDINGS: The right wrist is moderately osteopenic and mildly degenerative without fracture or dislocation evident. No foreign body is noted. The lunate and navicular appear intact. The distal radius is unremarkable. IMPRESSION: 1. No acute abnormality noted. Electronically signed by: Rinku Marsh MD 01/28/2017 1:05 PM CDT
== END | disposition home or self-care (01) ==
LOC: RAD 07:43
PROVIDERS: ATTEND Orthopaedic Surgery
DX: S82.002D Unspecified fracture of left patella, subsequent encounter for closed fracture with routine healing (principal); S52.501D Unspecified fracture of the lower end of right radius, subsequent encounter for closed fracture with routine healing

== ENCOUNTER → 2017-05-09 | Outpatient (CLI) | payer MEDICARE | END | disposition home or self-care (01) | LOC: LAB.O 11:19 | PROVIDERS: ATTEND Internal Medicine Interventional Cardiology | DX: R07.9 Chest pain, unspecified (principal); R94.39 Abnormal result of other cardiovascular function study ==

== ENCOUNTER → 2017-08-06 | Outpatient (CLI) | payer MEDICARE ==
--- NOTE | 2017-08-06 10:19 | RAD ---
EXAM DESCRIPTION: Knee,Left Complete CLINICAL HISTORY: 67 years, Female, FRACTURE OF PATELLA LEFT COMPARISON: January 28, 2017 TECHNIQUE: Four views of the left knee FINDINGS: The patella is in internally fixed with a [id number] suture and two longitudinal pins, unchanged from prior study. On the lateral view fracture line appears healed anteriorly but a notch and cleft in the posterior articular surface behind the pins persist and is little changed from prior examination. Incomplete bony union at the posterior articular surface is suspected. Thickening of the quadriceps tendon just above the patella in the area of the fixation hardware is noted and unchanged from prior study. The bony structures are osteopenic with no new injuries or fractures or significant joint effusion noted. IMPRESSION: 1. Stable appearance of the left patella with fracture line no longer clearly evident between involving the mid or anterior patella with a persistent notch or cleft in the posterior articular surface is unchanged from January examination. 2. New injury of the patella or the remainder the knee is not apparent. 3. Persistent thickening of the quadriceps tendon and the suprapatellar region in the area of the pins and wire suture. 4. Of note, the medial pin has retracted slightly in a cephalad direction since September 2016 examination and the inferior tip is no longer hooked through the wire loop inferiorly Electronically signed by: Rinku Marsh MD 08/06/2017 10:17 AM CDT
== END | disposition home or self-care (01) ==
LOC: RAD 08:17
PROVIDERS: ATTEND Orthopaedic Surgery
DX: S82.002D Unspecified fracture of left patella, subsequent encounter for closed fracture with routine healing (principal)